=== PATIENT | male | born 1985 | race Caucasian/White ===

== ENCOUNTER 2023-10-11 01:13 | Emergency (ER) | payer OTHER ==
[~2023-10-11] VITALS: Ht 182.9 cm; Wt 117.9 kg
[~2023-10-11 01:13] MED LIST: DIAZ10TA PO; ZOLP10TA2 PO
[2023-10-11] MEDS ORDERED: HYDROMORPHONE 1 MG/1 ML DISP.SYRIN ONE ×5 (01:43→08:11)
[2023-10-11] MEDS ORDERED: ONDANSETRON 4 MG/2 ML VIAL ONE (01:43)
[2023-10-11] MEDS ORDERED: KETOROLAC TROMETHAMINE 15 MG INJ ONE (01:43)
[2023-10-11] MEDS: IV NORMAL SALINE 1000 ML BAG IV ONE ×4 (01:49→05:30)
[2023-10-11] MEDS: KETOROLAC TROMETHAMINE 15 MG INJ IVP ONE (01:49)
[2023-10-11] MEDS: ONDANSETRON 4 MG/2 ML VIAL IV ONE (01:49)
[2023-10-11] MEDS: HYDROMORPHONE 1 MG/1 ML DISP.SYRIN IV ONE ×5 (01:49→08:15)
[2023-10-11 01:50] LABS: BASOPHILS # (AUTO) 0.1 K/UL (0.0-0.2); BASOPHILS % (AUTO) 0.9 % (0.0-2.0); EOSINOPHILS # (AUTO) 0.3 K/uL (0.0-0.7); EOSINOPHILS % (AUTO) 2.8 % (0.0-7.0); HEMOGLOBIN 15.7 g/dL (12.5-16.3); LYMPHOCYTES # (AUTO) 2.6 K/uL (0.8-4.8); LYMPHOCYTES % (AUTO) 24.7 % (20.5-51.5); MEAN CORPUSCULAR HEMOGLOBIN 28.9 uug (23.8-33.4); MEAN CORPUSCULAR HGB CONC 34 g/dL (32.5-36.3); MEAN CORPUSCULAR VOLUME 84.8 fL (73.0-96.2); MONOCYTES # (AUTO) 0.9 K/uL (0.1-1.30); MONOCYTES % (AUTO) 8.1 % (0.0-11.0); NEUTROPHILS # (AUTO) 6.8 K/uL (1.8-8.9); NEUTROPHILS % (AUTO) 63.5 % (38.5-71.5); PLATELET COUNT (AUTO) 266 K/uL (152-348); RED BLOOD CELL COUNT(AUTO) 5.42 MIL/uL (4.06-5.63); RED CELL DISTRIBUTION WIDTH 13.5 % (12.1-16.2); WHITE BLOOD COUNT (AUTO) 10.6 K/uL (3.6-10.2)
[2023-10-11 01:52] LABS: DIFFERENTIAL COMMENT 1
[2023-10-11 01:58] LABS: POTASSIUM 3.7 mmol/L (3.5-5.1)
[2023-10-11 02:04] LABS: ALBUMIN 3.9 g/dL (3.4-5.0); BILIRUBIN,DIRECT 0.3 mg/dL (0.0-0.2); BILIRUBIN,TOTAL 1.4 mg/dL (0.2-1.0); TOTAL PROTEIN, SERUM 7.1 g/dL (6.4-8.2)
[2023-10-11] MEDS ORDERED: SWABABLE VALVE TRANSFER SET EA MC ONE (02:06)
[2023-10-11] MEDS ORDERED: IV NORMAL SALINE 250 ML IV ONE (02:06)
[2023-10-11] MEDS ORDERED: IOHEXOL 300 MG/ML 10 ML VIAL ONE (02:08)
[2023-10-11] MEDS ORDERED: IOHEXOL 300MG/ML 100 ML INFUS..BTL ONE (02:09)
[2023-10-11] MEDS ORDERED: SEMA1PEN SQ (06:26)
[2023-10-11] MEDS ORDERED: CLON1TAB PO (06:26)
[2023-10-11] MEDS ORDERED: CITA40TA22 PO (06:26)
[2023-10-11] MEDS ORDERED: LAMO200T2 PO (06:26)
[2023-10-11] MEDS ORDERED: KETOROLAC TROMETHAMINE 30 MG INJ ONE (06:32)
[2023-10-11] MEDS: KETOROLAC TROMETHAMINE 30 MG INJ IVP ONE (06:36)
[2023-10-11 06:40] LABS: *BILIRUBIN,URIN NEGATIVE (NEGATIVE); *BLOOD, URINE 2+ (NEGATIVE); *CLARITY,URINE CLEAR (CLEAR); *COLOR,URINE YELLOW (YELLOW); *KETONES,URINE NEGATIVE (NEGATIVE); *PROTEIN,URINE NEGATIVE (NEGATIVE); *UROBILINOGEN,URINE 0.2 E.U./dl (NORMAL); LEUKOCYTE ESTERASE ,URINE NEGATIVE (NEGATIVE); NITRITE, URINE NEGATIVE (NEGATIVE); PH,URINE 5.5 (5.0-8.0); UGLUCOSE NEGATIVE (NEGATIVE)
[2023-10-11] MEDS ORDERED: HYDR4TAB4 PO (08:03)
[2023-10-11] MEDS ORDERED: KETO10TA2 PO (08:03)
[2023-10-11 08:28] VITALS: BP 131/65; O2SAT 99
[2023-10-11 15:30] LABS: BACTERIA,URINE FEW /HPF (NONE SEEN); RBC,URINE 20-50 /HPF (0-3); SQUAMOUS EPITHELIAL CELL,UR FEW /HPF (NONE SEEN); WBC,URINE 0-3 /HPF (0-3)
[2023-10-11] MEDS ORDERED: ONDA4TAB5 PO (22:03)
[2023-10-11] MEDS ORDERED: DICY10CA13 PO (22:03)
== END 2023-10-11 08:29 | disposition home or self-care (01) ==
LOC: ER 01:24
DX: R10.31 Right lower quadrant pain (principal); Z87.442 Personal history of urinary calculi; Z79.899 Other long term (current) drug therapy; Z60.2 Problems related to living alone; Z88.0 Allergy status to penicillin
CPT/HCPCS: 99285; 74177; 96374; 96361; 96375; 80076; 80048; 81001; 83690; 85025; 36415; 96376; J1885 ×2; J2405; Q9967; J1170 ×5; J7040 ×4; A4606; A4663

== ENCOUNTER 2023-10-11 20:11 | Emergency (ER) | payer OTHER ==
[~2023-10-11] VITALS: Ht 182.9 cm; Wt 117.9 kg
[~2023-10-11 20:11] MED LIST changes: +CITA40TA22 PO; +CLON1TAB PO; +HYDR4TAB4 PO; +KETO10TA2 PO; +LAMO200T2 PO; +SEMA1PEN SQ
[2023-10-11] MEDS ORDERED: ONDANSETRON 4 MG/2 ML VIAL ONE (20:24)
[2023-10-11] MEDS ORDERED: DICYCLOMINE HCL LIQ 10 MG/5 ML UDC ONE (20:40)
[2023-10-11] MEDS ORDERED: KETOROLAC TROMETHAMINE 15 MG INJ ONE ×2 (20:40→22:10)
[2023-10-11] MEDS ORDERED: DICYCLOMINE HCL 20 MG TABLET ONE (20:41)
[2023-10-11 20:47] LABS: BASOPHILS # (AUTO) 0.1 K/UL (0.0-0.2); BASOPHILS % (AUTO) 0.6 % (0.0-2.0); EOSINOPHILS # (AUTO) 0.1 K/uL (0.0-0.7); EOSINOPHILS % (AUTO) 0.7 % (0.0-7.0); HEMATOCRIT 45.2 % (36.7-47.1); HEMOGLOBIN 15.2 g/dL (12.5-16.3); LYMPHOCYTES # (AUTO) 1.3 K/uL (0.8-4.8); LYMPHOCYTES % (AUTO) 9.3 % (20.5-51.5); MEAN CORPUSCULAR HEMOGLOBIN 28.7 uug (23.8-33.4); MEAN CORPUSCULAR HGB CONC 34 g/dL (32.5-36.3); MEAN CORPUSCULAR VOLUME 85.4 fL (73.0-96.2); MONOCYTES # (AUTO) 0.8 K/uL (0.1-1.30); MONOCYTES % (AUTO) 6.2 % (0.0-11.0); NEUTROPHILS # (AUTO) 11.3 K/uL (1.8-8.9); NEUTROPHILS % (AUTO) 83.2 % (38.5-71.5); PLATELET COUNT (AUTO) 228 K/uL (152-348); RED BLOOD CELL COUNT(AUTO) 5.29 MIL/uL (4.06-5.63); RED CELL DISTRIBUTION WIDTH 13.4 % (12.1-16.2); WHITE BLOOD COUNT (AUTO) 13.6 K/uL (3.6-10.2)
[2023-10-11 20:51] LABS: DIFFERENTIAL COMMENT 1
[2023-10-11] MEDS: ONDANSETRON 4 MG/2 ML VIAL IV ONE (20:55)
[2023-10-11] MEDS: DICYCLOMINE HCL 10 MG CAPSULE PO STA (20:55)
[2023-10-11] MEDS: KETOROLAC TROMETHAMINE 15 MG INJ IVP ONE ×2 (20:56→22:18)
[2023-10-11] MEDS: IV NORMAL SALINE 500 ML BAG IV ONE (20:58)
[2023-10-11] MEDS: ONDANSETRON ODT 4 MG TAB.RAPDIS SL ONE (21:00)
[2023-10-11 21:02] LABS: CALCIUM 8.9 mg/dL (8.5-10.1); CREATININE 1.2 mg/dL (0.6-1.3); POTASSIUM 3.5 mmol/L (3.5-5.1)
[2023-10-11 21:07] LABS: ALBUMIN 3.8 g/dL (3.4-5.0); BILIRUBIN,TOTAL 2.3 mg/dL (0.2-1.0); MAGNESIUM 1.9 mg/dL (1.8-2.4); TOTAL PROTEIN, SERUM 6.8 g/dL (6.4-8.2)
[2023-10-11 21:18] LABS: C-REACTIVE PROTEIN 0.99 mg/dL (0.00-0.30)
[2023-10-11] MEDS ORDERED: METOCLOPRAMIDE HCL 10 MG/2 ML VIAL ONE (21:49)
[2023-10-11] MEDS ORDERED: diphenhydrAMINE 50 MG/1 ML VIAL ONE (21:51)
[2023-10-11] MEDS: diphenhydrAMINE 50 MG/1 ML VIAL IV ONE (21:55)
[2023-10-11] MEDS: METOCLOPRAMIDE HCL 10 MG/2 ML VIAL IV ONE (21:55)
[2023-10-11] MEDS ORDERED: ONDA4TAB5 PO (22:03)
[2023-10-11] MEDS ORDERED: DICY10CA13 PO (22:03)
[2023-10-11] MEDS ORDERED: TAMSULOSIN HCL 0.4 MG CAP.SR.24H ONE (22:11)
[2023-10-11] MEDS: TAMSULOSIN HCL 0.4 MG CAP.SR.24H PO ONE (22:18)
[2023-10-11 22:19] VITALS: BP 130/75; TEMP 98.6; O2SAT 98
== END 2023-10-11 22:19 | disposition home or self-care (01) ==
LOC: ER 20:19
DX: K52.9 Noninfective gastroenteritis and colitis, unspecified (principal); R11.2 Nausea with vomiting, unspecified; R10.9 Unspecified abdominal pain; Z79.899 Other long term (current) drug therapy; Z60.2 Problems related to living alone; Z88.0 Allergy status to penicillin
CPT/HCPCS: 99284; 96374; 96375; 96361; 80053; 83690; 83735; 85025; 86140; 36415; 96376; 83605; J1200; J1885 ×2; J2765; J2405; J7040; A4606; A4663

== ENCOUNTER 2023-10-14 22:46 | Emergency (ER) | payer OTHER ==
[~2023-10-14] VITALS: Ht 182.9 cm; Wt 136.1 kg
[~2023-10-14 22:46] MED LIST changes: +DICY10CA13 PO; +ONDA4TAB5 PO
[2023-10-14] MEDS ORDERED: KETOROLAC TROMETHAMINE 30 MG INJ ONE (23:33)
[2023-10-14 23:40] LABS: MEAN CORPUSCULAR VOLUME 84.2 fL (73.0-96.2); RED CELL DISTRIBUTION WIDTH 13.2 % (12.1-16.2)
[2023-10-14] MEDS: KETOROLAC TROMETHAMINE 30 MG INJ IVP ONE (23:40)
[2023-10-14 23:44] LABS: BASOPHILS # (AUTO) 0.4 K/UL (0.0-0.2); BASOPHILS % (AUTO) 3.2 % (0.0-2.0); DIFFERENTIAL COMMENT 0; EOSINOPHILS # (AUTO) 0.4 K/uL (0.0-0.7); EOSINOPHILS % (AUTO) 3.9 % (0.0-7.0); HEMATOCRIT 39.5 % (36.7-47.1); HEMOGLOBIN 13.5 g/dL (12.5-16.3); LYMPHOCYTES # (AUTO) 1.8 K/uL (0.8-4.8); LYMPHOCYTES % (AUTO) 15.9 % (20.5-51.5); MEAN CORPUSCULAR HEMOGLOBIN 28.8 uug (23.8-33.4); MEAN CORPUSCULAR HGB CONC 34 g/dL (32.5-36.3); MONOCYTES # (AUTO) 0.8 K/uL (0.1-1.30); MONOCYTES % (AUTO) 7.1 % (0.0-11.0); NEUTROPHILS % (AUTO) 69.9 % (38.5-71.5); PLATELET COUNT (AUTO) 223 K/uL (152-348); WHITE BLOOD COUNT (AUTO) 11.5 K/uL (3.6-10.2)
[2023-10-14 23:46] LABS: CALCIUM 8.5 mg/dL (8.5-10.1); CREATININE 1.1 mg/dL (0.6-1.3); POTASSIUM 3.4 mmol/L (3.5-5.1)
[2023-10-14 23:57] LABS: ALBUMIN 3.5 g/dL (3.4-5.0); BILIRUBIN,TOTAL 1.2 mg/dL (0.2-1.0); TOTAL PROTEIN, SERUM 6.4 g/dL (6.4-8.2)
[2023-10-15] MEDS ORDERED: HYDROMORPHONE 1 MG/1 ML DISP.SYRIN ONE ×2 (00:27→03:51)
[2023-10-15] MEDS: HYDROMORPHONE 1 MG/1 ML DISP.SYRIN IV ONE ×2 (00:30→03:59)
[2023-10-15] MEDS ORDERED: ONDANSETRON 4 MG/2 ML VIAL ONE (00:31)
[2023-10-15] MEDS: ONDANSETRON 4 MG/2 ML VIAL IV ONE (00:45)
[2023-10-15 03:09] LABS: *BILIRUBIN,URIN NEGATIVE (NEGATIVE); *BLOOD, URINE 2+ (NEGATIVE); *CLARITY,URINE CLEAR (CLEAR); *COLOR,URINE YELLOW (YELLOW); *KETONES,URINE NEGATIVE (NEGATIVE); *PROTEIN,URINE NEGATIVE (NEGATIVE); LEUKOCYTE ESTERASE ,URINE NEGATIVE (NEGATIVE); NITRITE, URINE NEGATIVE (NEGATIVE); UGLUCOSE NEGATIVE (NEGATIVE)
[2023-10-15 03:36] LABS: BACTERIA,URINE MODERATE /HPF (NONE SEEN); WBC,URINE NONE SEEN /HPF (0-3)
[2023-10-15 03:37] LABS: SQUAMOUS EPITHELIAL CELL,UR FEW /HPF (NONE SEEN); URINE AMORPHOUS URATE MODERATE /HPF
[2023-10-15 04:00] VITALS: O2SAT 96
[2023-10-15] MEDS: CEFTRIAXONE 1 G in IV DEXTROSE 5% 50 ML IV ONE (04:00)
[2023-10-15] MEDS ORDERED: CEFTRIAXONE /D5W 50ML IVPB **ER PYXIS IV ONE (04:03)
[2023-10-15] MEDS: POTASSIUM CHLORIDE 20 MEQ TAB.PRT.SR PO ONE (05:50)
== END 2023-10-15 06:25 | disposition short-term general hospital (02) ==
LOC: ER 22:47
DX: N39.0 Urinary tract infection, site not specified (principal); E87.6 Hypokalemia; N13.0 Hydronephrosis with ureteropelvic junction obstruction; R11.2 Nausea with vomiting, unspecified; Z79.899 Other long term (current) drug therapy; Z79.891 Long term (current) use of opiate analgesic; Z88.0 Allergy status to penicillin; Z60.2 Problems related to living alone
CPT/HCPCS: 99285; 74176; 96375 ×2; 80053; 85025; 36415; 96365; 81001; 96376; J1885; J0696; J2405; J1170 ×2; A4606; A4663